=== PATIENT | male | born 1955 | race Caucasian/White ===

== ENCOUNTER 2018-05-05 20:30 | Observation (INO) ==
[2018-05-05 20:57] LABS: Basophils # 0.1 K/mcL (0.0-0.2); Basophils % 1.1 %; Eosinophils # 0.4 K/mcL (0.0-0.6); Eosinophils % 4.9 %; Hematocrit 45.5 % (37.5-50.1); Hemoglobin 15.1 g/dL (12.9-16.9); Immature Granulocytes % 0.9 % (0-4); Lymphocytes # 1.7 K/mcL (0.6-4.6); Lymphocytes % 19.2 %; Mean Corpuscular HGB Conc 33.2 g/dL (31.6-35.5); Mean Corpuscular Hemoglobin 28.2 pg (28.0-33.3); Mean Platelet Volume 10.6 fL (9.4-12.4); Monocytes # 0.7 K/mcL (0.0-1.3); Monocytes % 8.4 %; Neutrophils # 5.8 K/mcL (1.6-8.9); Platelet Count 207 K/mcL (140-400); Red Blood Count 5.35 M/mcL (4.19-5.50); Red Cell Distribution Width 12.9 % (11.5-14.5); Segmented Neutrophils % 65.5 %
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
[2018-05-05] MEDS ORDERED: Lidocaine 1% 20 ML MDV ID ONE (21:01)
[2018-05-05] MEDS ORDERED: *HR* Morphine Immed Rel 30 MG TABLET PO STA (21:04)
[2018-05-05 21:19] LABS: BUN/Creatinine Ratio 14 (6-26); Blood Urea Nitrogen 13 mg/dL (8-23); Calcium 8.8 mg/dL (8.6-10.3); Carbon Dioxide 23 mEq/L (23-29); Chloride 101 mEq/L (98-107); Glucose 167 mg/dL (70-105); Osmolality,Calculated 288 (280-300); Potassium 3.6 mEq/L (3.5-5.1); Sodium 137 mEq/L (136-145); Troponin I < 0.03 ng/mL (< 0.04); eGFR For Non-African Americans > 60 (> 60)
[2018-05-05] MEDS ORDERED: Ketorolac 15 MG/ML VIAL IVP ONE (23:44)
[2018-05-06] MEDS ORDERED: Acetaminophen 325 MG TABLET PO PRN (00:07)
[2018-05-06] MEDS ORDERED: *HR* Dextrose 50 % in Water (Syg) 50 ML SYRINGE IVP PRN (00:07)
[2018-05-06] MEDS ORDERED: D5% in Water 1,000 ML IVC PRN (00:07)
[2018-05-06] MEDS ORDERED: Dextrose Gel 15 GM/37.5 ML TUBE PO PRN ×2 (00:07)
[2018-05-06] MEDS ORDERED: Naloxone 0.4 MG/ML INJ IVP PRN (00:07)
[2018-05-06] MEDS ORDERED: Albuterol 2.5 MG/3 ML NEBULIZER IH PRN (00:15)
[2018-05-06] MEDS ORDERED: ALPRAZolam 1 MG TABLET PO PRN (00:15)
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
[2018-05-06 01:57] LABS: Basophils # 0.1 K/mcL (0.0-0.2); Basophils % 1.1 %; Eosinophils # 0.2 K/mcL (0.0-0.6); Eosinophils % 1.6 %; Hemoglobin 14.2 g/dL (12.9-16.9); Immature Granulocytes % 0.8 % (0-4); Lymphocytes # 1.3 K/mcL (0.6-4.6); Lymphocytes % 14.3 %; Mean Corpuscular Hemoglobin 28.1 pg (28.0-33.3); Mean Corpuscular Volume 85.1 fL (83.0-100.0); Mean Platelet Volume 10.6 fL (9.4-12.4); Monocytes # 0.5 K/mcL (0.0-1.3); Monocytes % 5.9 %; Platelet Count 193 K/mcL (140-400); Red Blood Count 5.05 M/mcL (4.19-5.50); Red Cell Distribution Width 12.8 % (11.5-14.5); Segmented Neutrophils % 76.3 %
[2018-05-06 02:04] LABS: Prothrombin Time 10.8 Seconds (9.4-12.1)
[2018-05-06 02:06] LABS: Activated Partial Thrombo Time 32.1 Seconds (26.0-36.0)
[2018-05-06 02:16] LABS: Alanine Aminotransferase 29 Units/L (7-52); Albumin 3.7 g/dL (3.5-5.7); Albumin/Globulin Ratio 1.5 (1.1-2.2); Alkaline Phosphatase 68 Units/L (34-104); Aspartate Amino Transferase 17 Units/L (13-39); BUN/Creatinine Ratio 15 (6-26); Bilirubin,Total 0.4 mg/dL (0.3-1.0); Blood Urea Nitrogen 13 mg/dL (8-23); Calcium 8.6 mg/dL (8.6-10.3); Carbon Dioxide 25 mEq/L (23-29); Chloride 104 mEq/L (98-107); Chol/HDL Ratio 3.6 (0-4.9); Cholesterol 116 mg/dL (< 200); Globulin 2.5 g/dL (2.4-3.5); Glucose 155 mg/dL (70-105); HDL Cholesterol 32 mg/dL (40-59); LDL Cholesterol,Calculated 49 mg/dL (0-99); Magnesium 1.5 mg/dL (1.6-2.6); Osmolality,Calculated 287 (280-300); Potassium 4.1 mEq/L (3.5-5.1); Sodium 137 mEq/L (136-145); Total Protein 6.2 g/dL (6.4-8.9); Triglycerides 173 mg/dL (< 150); eGFR For Non-African Americans > 60 (> 60)
[2018-05-06] MEDS: *HR* OxyCODONE Immed Rel 5 MG TABLET PO PRN ×2 (03:51→10:07)
[2018-05-06] MEDS ORDERED: Ipratropium/Albuterol Neb 3 ML IH PRN (04:00)
[2018-05-06] MEDS ORDERED: *HR* Heparin 5,000 UNIT/ML VIAL SQ SCH (06:00)
[2018-05-06] MEDS: traMADol 50 MG TABLET PO PRN ×2 (06:46→15:27)
[2018-05-06] MEDS ORDERED: Tiotropium 18 MCG inhalation IH SCH (07:00)
[2018-05-06] MEDS: Insulin LISPRO 300 UNITS/3 ML VIAL SQ SCH ×2 (07:09→15:30)
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
[2018-05-06 16:39] VITALS: BP 116/72
--- NOTE | 2018-05-07 12:45 | Electrocardiograph Report ---
[address] [address] Test Date: 2018-05-05 Pat Name: Rajan Austin Department: EXAM3 Room: 3B64 Gender: M Broadcast Checker: : 1955 Requested By: Kendall Paniagua Order Number: [id number] Reading MD: Mery Geiger Measurements Intervals [place] Rate: 89 P: 22 [place]: 156 QRS: -34 QRSD: 97 T: 36 QT: 370 QTc: 451 Interpretive Statements Sinus rhythm Atrial premature complex Left axis deviation Nonspecific STT abnormalities Electronically Signed On 05-07-2018 12:43:09 EDT by Mery Geiger
== END 2018-05-06 18:30 | disposition home or self-care (01) ==
LOC: EMEROOARM 20:30 → 3BNU 20:30
PROVIDERS: ADMIT Family Medicine; ATTEND Family Medicine

== ENCOUNTER 2019-05-25 15:45 | Observation (INO) ==
[2019-05-25] MEDS ORDERED: *HR* Heparin 5,000 UNIT/ML VIAL IVP PRN ×4 (16:20→17:55)
[2019-05-25] MEDS ORDERED: *HR* Heparin 5,000 UNIT/ML VIAL IVP ONE ×2 (16:20→17:55)
[2019-05-25 16:28] LABS: Basophils # 0.1 K/mcL (0.0-0.2); Basophils % 1.1 %; Eosinophils # 0.2 K/mcL (0.0-0.6); Eosinophils % 2.8 %; Hematocrit 51.8 % (37.5-50.1); Immature Granulocytes % 0.7 % (0-4); Lymphocytes # 1.5 K/mcL (0.6-4.6); Lymphocytes % 18.2 %; Mean Corpuscular HGB Conc 32.8 g/dL (31.6-35.5); Mean Corpuscular Volume 88.4 fL (83.0-100.0); Mean Platelet Volume 10.8 fL (9.4-12.4); Monocytes # 0.8 K/mcL (0.0-1.3); Monocytes % 9.8 %; Neutrophils # 5.6 K/mcL (1.6-8.9); Platelet Count 235 K/mcL (140-400); Red Blood Count 5.86 M/mcL (4.19-5.50); Red Cell Distribution Width 12.7 % (11.5-14.5); Segmented Neutrophils % 67.4 %; White Blood Count 8.3 K/mcL (4.3-11.1)
[2019-05-25] MEDS ORDERED: Heparin 25,000 UNIT/250 ML D5W 25,000 UNIT/250 ML IV.SOLN IVC SCH (16:30)
[2019-05-25] MEDS ORDERED: Furosemide 40 MG/4 ML VIAL IVP ONE (16:33)
[2019-05-25 16:50] LABS: BUN/Creatinine Ratio 13 (6-26); Blood Urea Nitrogen 14 mg/dL (8-23); Carbon Dioxide 25 mEq/L (23-29); Chloride 104 mEq/L (98-107); Glucose 142 mg/dL (70-105); Osmolality,Calculated 289 (280-300); Potassium 4.4 mEq/L (3.5-5.1); Sodium 138 mEq/L (136-145); Troponin I < 0.03 ng/mL (< 0.04); eGFR For African Americans > 60 (> 60); eGFR For Non-African Americans > 60 (> 60)
[2019-05-25] MEDS ORDERED: *HR* Metoprolol 5 MG/5 ML VIAL IVP ONE (16:59)
[2019-05-25 17:04] LABS: Thyroid Stimulating Hormone 4.345 mcIU/mL (0.340-5.600)
[2019-05-25 18:39] LABS: Hematocrit 50.6 % (37.5-50.1); Hemoglobin 17.1 g/dL (12.9-16.9); Mean Corpuscular HGB Conc 33.8 g/dL (31.6-35.5); Mean Corpuscular Volume 85.8 fL (83.0-100.0); Mean Platelet Volume 10.5 fL (9.4-12.4); Platelet Count 212 K/mcL (140-400); Red Cell Distribution Width 12.6 % (11.5-14.5); White Blood Count 7.6 K/mcL (4.3-11.1)
[2019-05-25 19:25] LABS: Prothrombin Time 11.1 Seconds (9.4-12.1)
[2019-05-25] MEDS: Insulin LISPRO 300 UNITS/3 ML VIAL SQ SCH (20:20)
[2019-05-25] MEDS: MethylPREDNISolone 40 MG/ML VIAL IVP SCH (20:23)
[2019-05-25] MEDS: Heparin 25,000 UNIT/250 ML D5W 25,000 UNIT/250 ML IV.SOLN IVC SCH (20:24)
[2019-05-25 20:38] LABS: Adenovirus Not Detected (Not Detect); Bordetella Pertussis Not Detected (Not Detect); Chlamydophila pneumoniae Not Detected (Not Detect); Coronavirus 229E Not Detected (Not Detect); Coronavirus HKU1 Not Detected (Not Detect); Coronavirus NL63 Not Detected (Not Detect); Coronavirus OC43 Not Detected (Not Detect); Human Metapneumovirus Not Detected (Not Detect); Human Rhinovirus/Enterovirus Not Detected (Not Detect); Influenza A Subtype 2009 H1 Not Detected (Not Detect); Influenza A Untypeable Not Detected (Not Detect); Influenza B Not Detected (Not Detect); Mycoplasma pneumoniae Not Detected (Not Detect); Parainfluenza Virus 1 Not Detected (Not Detect); Parainfluenza Virus 2 Not Detected (Not Detect); Parainfluenza Virus 3 Not Detected (Not Detect); Parainfluenza Virus 4 Not Detected (Not Detect); Respiratory Syncytial Virus Not Detected (Not Detect)
[2019-05-25 21:00] LABS: Magnesium 1.9 mg/dL (1.6-2.6)
[2019-05-25 21:01] LABS: Troponin I < 0.03 ng/mL (< 0.04)
[2019-05-25] MEDS: Ipratropium/Albuterol Neb 3 ML IH SCH ×2 (21:10→21:14)
[2019-05-26] MEDS ORDERED: *HR* LORazepam 2 MG/ML VIAL IVP ONE (02:14)
[2019-05-26 02:37] LABS: Basophils % 0.5 %; Eosinophils % 0.2 %; Hematocrit 51.8 % (37.5-50.1); Hemoglobin 17.6 g/dL (12.9-16.9); Lymphocytes # 0.7 K/mcL (0.6-4.6); Lymphocytes % 8.3 %; Mean Corpuscular Hemoglobin 28.9 pg (28.0-33.3); Mean Corpuscular Volume 84.9 fL (83.0-100.0); Mean Platelet Volume 10.9 fL (9.4-12.4); Monocytes # 0.1 K/mcL (0.0-1.3); Monocytes % 1.5 %; Neutrophils # 7.7 K/mcL (1.6-8.9); Platelet Count 232 K/mcL (140-400); Red Cell Distribution Width 12.7 % (11.5-14.5); Segmented Neutrophils % 88.5 %; White Blood Count 8.7 K/mcL (4.3-11.1)
[2019-05-26 02:55] LABS: BUN/Creatinine Ratio 15 (6-26); Blood Urea Nitrogen 17 mg/dL (8-23); Calcium 9.6 mg/dL (8.6-10.3); Carbon Dioxide 24 mEq/L (23-29); Chloride 101 mEq/L (98-107); Chol/HDL Ratio 3.7 (0-4.9); Cholesterol 136 mg/dL (< 200); Glucose 222 mg/dL (70-105); HDL Cholesterol 37 mg/dL (40-59); LDL Cholesterol,Calculated 83 mg/dL (0-99); Osmolality,Calculated 294 (280-300); Potassium 4.4 mEq/L (3.5-5.1); Sodium 138 mEq/L (136-145); Triglycerides 81 mg/dL (< 150); Troponin I < 0.03 ng/mL (< 0.04); eGFR For African Americans > 60 (> 60); eGFR For Non-African Americans > 60 (> 60)
[2019-05-26] MEDS: Ipratropium/Albuterol Neb 3 ML IH SCH ×3 (03:12→15:27)
[2019-05-26] MEDS: MethylPREDNISolone 40 MG/ML VIAL IVP SCH (05:54)
[2019-05-26] MEDS: Heparin 25,000 UNIT/250 ML D5W 25,000 UNIT/250 ML IV.SOLN IVC SCH ×2 (05:55→17:33)
[2019-05-26 06:47] LABS: Estimated Average Glucose 171 mg/dl
[2019-05-26] MEDS ORDERED: D5% in Water 1,000 ML IVC PRN (08:00)
[2019-05-26] MEDS ORDERED: Dextrose Gel 15 GM/37.5 ML TUBE PO PRN ×2 (08:00)
[2019-05-26] MEDS ORDERED: *HR* Dextrose 50 % in Water (Syg) 50 ML SYRINGE IVP PRN (08:00)
[2019-05-26] MEDS: Insulin LISPRO 300 UNITS/3 ML VIAL SQ SCH ×4 (08:48→21:14)
[2019-05-26] MEDS: Furosemide 20 MG/2 ML VIAL IVP SCH ×2 (08:48→17:32)
[2019-05-26] MEDS: *HR* Metoprolol 5 MG/5 ML VIAL IVP PRN ×2 (08:48→18:27)
[2019-05-26] MEDS ORDERED: Perflutren Lipid Microsphere 1.3 ML in 0.9 % Sodium Chloride 8.7 ML IVP ONE (12:30)
[2019-05-26] MEDS: *HR* Rivaroxaban 10 MG TABLET PO SCH (17:32)
[2019-05-26] MEDS: predniSONE 20 MG TABLET PO SCH (17:32)
[2019-05-26] MEDS: Levalbuterol Neb 0.63 MG/3 ML IH SCH (21:59)
[2019-05-27] MEDS: Levalbuterol Neb 0.63 MG/3 ML IH SCH ×4 (04:05→22:20)
[2019-05-27 05:47] LABS: Basophils # 0.1 K/mcL (0.0-0.2); Basophils % 0.4 %; Eosinophils % 0.1 %; Hematocrit 51.4 % (37.5-50.1); Hemoglobin 17.5 g/dL (12.9-16.9); Immature Granulocytes % 2.1 % (0-4); Lymphocytes # 0.8 K/mcL (0.6-4.6); Lymphocytes % 5.4 %; Mean Corpuscular Hemoglobin 29.1 pg (28.0-33.3); Mean Corpuscular Volume 85.4 fL (83.0-100.0); Monocytes # 0.7 K/mcL (0.0-1.3); Platelet Count 256 K/mcL (140-400); Red Blood Count 6.02 M/mcL (4.19-5.50)
[2019-05-27 05:55] LABS: Neutrophils # 12.2 K/mcL (1.6-8.9)
[2019-05-27 06:08] LABS: BUN/Creatinine Ratio 21 (6-26); Blood Urea Nitrogen 26 mg/dL (8-23); Calcium 9.3 mg/dL (8.6-10.3); Carbon Dioxide 26 mEq/L (23-29); Chloride 100 mEq/L (98-107); Glucose 224 mg/dL (70-105); Magnesium 2.3 mg/dL (1.6-2.6); Osmolality,Calculated 300 (280-300); Potassium 4.4 mEq/L (3.5-5.1); Sodium 139 mEq/L (136-145); eGFR For African Americans > 60 (> 60); eGFR For Non-African Americans 59 (> 60)
[2019-05-27] MEDS: Metoprolol XL (24 HR) Succ 50 MG TAB.ER.24H PO SCH (08:25)
[2019-05-27] MEDS: predniSONE 20 MG TABLET PO SCH (08:25)
[2019-05-27] MEDS: 0.9 % Sodium Chloride 1,000 ML IVC SCH ×2 (08:26→22:36)
[2019-05-27] MEDS: Insulin LISPRO 300 UNITS/3 ML VIAL SQ SCH ×4 (08:26→20:26)
[2019-05-27] MEDS: Furosemide 20 MG/2 ML VIAL IVP SCH ×2 (08:26→16:29)
[2019-05-27] MEDS ORDERED: Metoprolol XL (24 HR) Succ 50 MG TAB.ER.24H PO SCH (09:00)
[2019-05-27] MEDS: Diltiazem CD (24hr) 180 MG CAPSULE PO SCH (16:28)
[2019-05-27] MEDS: *HR* Rivaroxaban 10 MG TABLET PO SCH (16:29)
[2019-05-27] MEDS ORDERED: ALPRAZolam 1 MG TABLET PO PRN (17:06)
[2019-05-27] MEDS ORDERED: NON-FORMULARY MEDICATION 1 EACH EACH (Diclofenac Sodium [Voltaren] 1 APPL) TP PRN (17:06)
[2019-05-27] MEDS ORDERED: Aspirin Enteric Coated 81 MG Tablet PO SCH (17:15)
[2019-05-27] MEDS: OXcarbazepine 150 MG TABLET PO SCH (20:25)
[2019-05-27] MEDS ORDERED: Insulin DETEMIR 100 UNIT/ML X5UNITS SQ SCH (21:00)
[2019-05-27] MEDS ORDERED: risperiDONE 1 MG TABLET PO SCH (21:00)
[2019-05-28] MEDS: Levalbuterol Neb 0.63 MG/3 ML IH SCH ×2 (03:41→10:01)
[2019-05-28 06:37] LABS: Basophils # 0.1 K/mcL (0.0-0.2); Basophils % 0.6 %; Eosinophils % 0.2 %; Hematocrit 47.5 % (37.5-50.1); Hemoglobin 15.8 g/dL (12.9-16.9); Immature Granulocytes % 0.8 % (0-4); Lymphocytes # 1.4 K/mcL (0.6-4.6); Lymphocytes % 14.8 %; Mean Corpuscular HGB Conc 33.3 g/dL (31.6-35.5); Mean Corpuscular Hemoglobin 28.9 pg (28.0-33.3); Mean Platelet Volume 10.7 fL (9.4-12.4); Monocytes # 0.9 K/mcL (0.0-1.3); Monocytes % 9.5 %; Platelet Count 211 K/mcL (140-400); Red Blood Count 5.46 M/mcL (4.19-5.50); Segmented Neutrophils % 74.1 %; White Blood Count 9.4 K/mcL (4.3-11.1)
[2019-05-28 06:56] LABS: BUN/Creatinine Ratio 25 (6-26); Blood Urea Nitrogen 26 mg/dL (8-23); Calcium 8.9 mg/dL (8.6-10.3); Carbon Dioxide 28 mEq/L (23-29); Chloride 101 mEq/L (98-107); Glucose 176 mg/dL (70-105); Magnesium 2.2 mg/dL (1.6-2.6); Osmolality,Calculated 297 (280-300); Potassium 4.4 mEq/L (3.5-5.1); Sodium 139 mEq/L (136-145); eGFR For African Americans > 60 (> 60); eGFR For Non-African Americans > 60 (> 60)
[2019-05-28 08:06] VITALS: BP 136/81
[2019-05-28] MEDS: OXcarbazepine 150 MG TABLET PO SCH (08:31)
[2019-05-28] MEDS: Diltiazem CD (24hr) 180 MG CAPSULE PO SCH (08:32)
[2019-05-28] MEDS: Furosemide 20 MG/2 ML VIAL IVP SCH (08:33)
[2019-05-28] MEDS: Metoprolol XL (24 HR) Succ 50 MG TAB.ER.24H PO SCH (08:33)
[2019-05-28] MEDS: Insulin LISPRO 300 UNITS/3 ML VIAL SQ SCH (08:33)
[2019-05-28] MEDS: predniSONE 20 MG TABLET PO SCH (08:33)
[2019-05-28] MEDS ORDERED: Loratadine 10 MG TABLET PO SCH (09:00)
== END 2019-05-28 15:56 | disposition home health service (06) ==
LOC: EMEROOARM 15:45 → 2ANU 15:45 → SUATTDRO 17:28 → 2ANU 18:39
PROVIDERS: ADMIT Internal Medicine; ATTEND Pharmacist